=== PATIENT | female | born 1990 | race African-American/Black ===

== ENCOUNTER 2020-08-01 10:10 | Emergency (ER) | payer OTHER, SELFPAY ==
[2020-08-01 10:18] VITALS: BP 109/63; PULSE 76; RESP 18; TEMP 36.3; O2SAT 99
--- NOTE | 2020-08-01 10:22 | ED.HA ---
HPI - Headache General Chief Complaint: Headache Stated Complaint: spencer/neck pain Source: patient and RN notes reviewed Mode of arrival: ambulatory Limitations: no limitations History of Present Illness HPI Narrative: This patient is a 30-year-old -Wel[place] female that presented today in the urgent care complaining of left side neck pain along with headaches. Patient has a history of diabetes. According to patient about a week ago she was assembling a bicycle in the sprain muscle on her lower left side of her back. Patient noted that because of the sprain she had sleep in all positions. She believes that this is the cause of her neck pain. Patient noted that she did take Tylenol for muscle aches at home with no relief. She has not slept in approximately 4 days due to the discomfort of her neck and headaches. The patient denies SOB, CP, palpitation, extremity numbness, lightheadedness, dizziness, constipation, diarrhea, chills, or fever. Related Data Home Medications Medication Instructions Recorded Confirmed metformin 500 mg PO DAILY 08/01/20 08/01/20 Allergies Allergy/AdvReac Type Severity Reaction Status Date / Time No Known Allergies Allergy Verified 08/01/20 10:26 Review of Systems Review of Systems: All systems reviewed & are unremarkable except as noted in HPI and below (10 system review) Exam Narrative: Exam Narrative: GENERAL: This is a well-nourished, well-developed patient, in no apparent distress. HEAD: normocephalic, atraumatic. EYES: PERRL. Sclera clear/white. Vision is grossly intact. EARS: External ears normal, auditory canals clear and without drainage, TMs normal without perforation. Hearing grossly intact. NOSE: External nose normal with no obvious nasal discharge, nares without redness, no rhinorrhea. THROAT: Mucous membranes moist, posterior pharynx clear. NECK: Neck supple, non-tender without lymphadenopathy, masses or thyromegaly. CARDIOVASCULAR: Regular rate and rhythm without murmurs, gallops, or rubs. RESPIRATORY: Clear to auscultation. Breath sounds equal bilaterally. No wheezes, rales, or rhonchi. GASTROINTESTINAL: Abdomen soft, non-tender, nondistended. Bowel sounds are active. No hepato-splenomegaly, or palpable masses. No guarding. SKIN: warm, intact with no suspicious lesions or rash, good texture and turgor. NEURO: awake, alert, and oriented to person, place and time. There were no obvious focal neurologic abnormalities. Steady gait EXTREMITIES: Normal range of motion. No edema. No calf tenderness. Negative Homans sign bilaterally. BACK: Nontender without deformity or crepitance. No flank tenderness. Course Vital Signs Vital signs: Vital Signs Temperature 97.4 F L 08/01/20 10:18 Pulse Rate 76 08/01/20 10:18 Respiratory Rate 18 08/01/20 10:18 Blood Pressure 109/63 08/01/20 10:18 Pulse Oximetry 99 08/01/20 10:18 Temperature 97.4 F L 08/01/20 10:18 Pulse Rate 76 08/01/20 10:18 Respiratory Rate 18 08/01/20 10:18 Blood Pressure 109/63 08/01/20 10:18 Pulse Oximetry 99 08/01/20 10:18 MDM - Headache MDM Narrative Medical decision making narrative: Patient discharge with Flexeril and a short dose of pain medication and instructions to ice Differential Diagnosis Differential diagnosis: Likely other (Muscle strain) Medical Records Attestation: I reviewed the patient's medical records. Critical Care Time Critical Care Time Critical Care Time: No Discharge Plan Discharge Clinical Impression: Neck ache Patient Disposition: Home, Self-Care Condition: Stable Instructions: Antibiotic Form, Muscle Strain (DC) Additional Instructions: Ice to the area 20-30 minutes 4-6 times a day Elevate above heart Elastic wrap or orthopedic splint as directed for comfort for the next 5-7 days Crutches as directed if needed Tylenol for lesser pain Ibuprofen regularly for the next 2-3 days for the inflammation Use the medication as prov
== END 2020-08-01 10:54 | disposition home or self-care (01) ==
PROVIDERS: Emergency Provider Nurse Practitioner
DX: M54.2 Cervicalgia (principal)
CPT/HCPCS: 99203; G0463

== ENCOUNTER 2022-02-12 13:02 | Outpatient (CLI) | payer OTHER, SELFPAY ==
--- NOTE | ~2022-02-12 | US_ITS ---
EXAMINATION: US thyroid DATE: 02/12/2022 14:11 INDICATION: Nontoxic goiter. TECHNIQUE: Multiple ultrasound images of the thyroid were obtained. COMPARISON: None. FINDINGS: The right thyroid lobe measures 6.4 x 2.1 x 2.5 cm. The left thyroid lobe measures 6.4 x 2.2 x 2.7 c m. In the right thyroid lobe, there is a 5 mm solid, very hypoechoic, [id number] nodule with sm ooth margin without echogenic foci (TI-RADS TR4). In the right thyroid lobe, there is a 6 mm solid, h ypoechoic, [id number] nodule with irregular margin without echogenic foci (TR4). IMPRESSION: 1. Small thyroid nodules, likely not clinically significant. No follow-up is needed. Reviewed, dictated and finalized at location A. IMPRESSION: 1. Small thyroid nodules, likely not clinically significant. No follow-up is ne eded.
--- NOTE | ~2022-02-12 | US_ITS ---
EXAMINATION: US pelvic complete w TV EXAM DATE: 02/12/2022 14:17 INDICATION: R93.89 - Abnormal findings on diagnostic imaging of other... TECHNIQUE: Pelvic transabdominal and transvaginal sonogram was performed. There are multiple graysca le and Doppler images available for interpretation. There is no prior study for comparison. FINDINGS: Uterus measures 8.1 x 4.6 x 5.8 cm, with a small fibroid measuring 1.2 cm distorting the e ndometrium . Endometrial stripe measures 13 mm, within normal limits. There is no free pelvic fluid. Right adnexa: The ovary measures 4.0 x 1.8 x 2.6 cm, with complex thick-walled cystic lesion measurin g up to 2.4 cm. Ovarian vascular flow confirmed. Left adnexa: The ovary measures 3.8 x 1.5 x 1.5 cm and is morphologically normal. Ovarian vascular fl ow confirmed. IMPRESSION: 1. Small complex cystic right ovarian lesion could be hemorrhagic cyst; consider 6 week follow-up pe lvic sonogram. 2. Small fibroid. Reviewed, dictated and finalized at location B. IMPRESSION: 1. Small complex cystic right ovarian lesion could be hemorrhagic cyst; consid er 6 week follow-up pelvic sonogram. 2. Small fibroid.
== END 2022-02-12 13:03 | disposition home or self-care (01) ==
PROVIDERS: PCP Nurse Practitioner Family; Visit Provider Obstetrics & Gynecology
DX: R93.89 Abnormal findings on diagnostic imaging of other specified body structures (principal); N80.9 Endometriosis, unspecified; N83.8 Other noninflammatory disorders of ovary, fallopian tube and broad ligament; D25.9 Leiomyoma of uterus, unspecified; E04.2 Nontoxic multinodular goiter
CPT/HCPCS: 76536; 76830; 76856

== ENCOUNTER 2022-03-13 07:36 | Outpatient (CLI) | payer OTHER, SELFPAY ==
--- NOTE | ~2022-03-13 | US_ITS ---
EXAMINATION: US pelvic complete w TV DATE: 03/13/2022 10:29 INDICATION: Unspecified ovarian cyst, unspecified site TECHNIQUE: Multiple transabdominal and endovaginal sonographic images of the pelvis were obtained. COMPARISON: 02/12/2022 FINDINGS: The uterus measures 8.9 x 5.0 x 4.5 cm. The endometrial complex measures 15 mm. The right o vary measures 4.2 x 2.8 x 2.5 cm there is a 1.8 x 1.5 x 1.3 cm isoechoic, well-circumscribed hypervas cular lesion of the right ovary. The left ovary measures 4.1 x 2.6 x 1.6 cm. There is normal vascular flow in the ovaries. There is no free fluid in the pelvis. IMPRESSION: 1. Solid-appearing well-circumscribed mass of the right ovary. Further evaluation by MRI without and with contrast is recommended. Reviewed, dictated and finalized at location A. IMPRESSION: 1. Solid-appearing well-circumscribed mass of the right ovary. Further evaluati on by MRI without and with contrast is recommended.
== END 2022-03-13 07:37 | disposition home or self-care (01) ==
PROVIDERS: PCP Nurse Practitioner Family; Visit Provider Obstetrics & Gynecology
DX: N83.209 Unspecified ovarian cyst, unspecified side (principal)
CPT/HCPCS: 76830; 76856

== ENCOUNTER 2022-03-18 13:50 | Outpatient (CLI) | payer OTHER, SELFPAY ==
[2022-03-18 14:42] LABS: T4 Thyroxine 7.19 ug/dL (5.53-11.0)
[2022-03-18 14:56] LABS: Thyroid Stimulating Hormone 0.532 uIU/mL (0.465-4.680)
[2022-03-20 21:30] LABS: CA-125 11 U/mL (<35)
== END 2022-03-18 13:51 | disposition home or self-care (01) ==
LOC: ANHLAB 13:52
PROVIDERS: PCP Nurse Practitioner Family; Visit Provider Obstetrics & Gynecology
DX: E04.9 Nontoxic goiter, unspecified (principal); N83.209 Unspecified ovarian cyst, unspecified side
CPT/HCPCS: 36415; 84436; 84443; 86304

== ENCOUNTER 2022-04-08 09:33 | Outpatient (CLI) | payer OTHER, SELFPAY ==
--- NOTE | ~2022-04-08 | US_ITS ---
EXAMINATION: US pelvic complete w TV DATE: 04/08/2022 10:20 INDICATION: Follow-up right ovarian cyst Comparison:03/13/2020 TECHNIQUE: Multiple transabdominal and endovaginal sonographic images of the pelvis performed. FINDINGS: The uterus measures 9 x 5.2 x 4.3 cm. There is a uterine fibroid measuring 1.4 x 1.1 x 1.0 cm. The endometrial complex measures 1.5 cm. The right ovary measures 4.6 x 3.8 x 2.5 cm and the left ovary measures 3.7 x 3 x 1.7 cm. There are small follicles in each ovary. Normal doppler signal in both ovaries. There is trace free fluid in the pelvis. There are no abnormal masses seen on either side. IMPRESSION: 1. Endometrial thickening measuring 1.5 cm. 2: Uterine fibroid measuring 1.4 cm. 3: No evidence for ovarian or adnexal mass or cyst. Reviewed, dictated and finalized at location B.
== END 2022-04-08 09:34 | disposition home or self-care (01) ==
LOC: ANHIMG 09:42
PROVIDERS: PCP Nurse Practitioner Family; Visit Provider Obstetrics & Gynecology
DX: N83.201 Unspecified ovarian cyst, right side (principal); R93.89 Abnormal findings on diagnostic imaging of other specified body structures; D25.9 Leiomyoma of uterus, unspecified
CPT/HCPCS: 76830; 76856

== ENCOUNTER 2022-08-08 15:46 | Emergency (ER) | payer OTHER, SELFPAY ==
--- NOTE | 2022-08-08 15:59 | ED.FEMALEGU ---
HPI - Female Genitourinary General Chief complaint: Urogenital-Female Stated complaint: Possible UTI Time Seen by Provider: 08/08/22 16:15 Source: patient Mode of arrival: ambulatory Limitations: no limitations History of Present Illness HPI Narrative: Ms. Veliz is a 32-year-old female patient presenting to clinic today with complaints of possible urinary tract infection. She reports over the last few days she has had some urinary urgency, frequency, and low urine output. She also reports some irritation around her urethra and some vaginal itching. States that she just finished some Augmentin for a sinus infection on 03 August. She denies any fever or chills. She denies any low back pain or abdominal pain Related Data Home Medications Medication Instructions Recorded Confirmed metformin 500 mg tablet 500 mg PO DAILY 08/01/20 08/08/22 dulaglutide 0.75 mg/0.5 mL 0.75 mg subcut WEEKLY 02/04/22 08/08/22 subcutaneous pen injector (Trulicity) Allergies Allergy/AdvReac Type Severity Reaction Status Date / Time No Known Allergies Allergy Verified 08/08/22 16:17 Review of Systems Review of Systems: Pertinent positives per HPI. Patient denies any fever, chills, rash, headache, visual changes, dizziness, cough, runny nose, sore throat, shortness of breath, chest pain, palpitations, nausea, vomiting, diarrhea, constipation, abdominal pain, or any urinary issues. PMFSH Past Medical History Medical History Diabetes Surgical History Surgical History No significant past surgical history Family History Family History Other Cerebrovascular accident Diabetes mellitus Heart disease Hypertension Social History Social History Smoking status: Never smoker Alcohol intake: never Substance use: never Comments At the time of my signature, I reviewed and agree with the nursing past medical, surgical, social, and family history. There is no relevant family history pertinent to the patient complaint. Exam Narrative: General: Well-developed, well nourished, in no apparent distress. Head: Normocephalic, atraumatic. Cardio: Regular rate and rhythm, s1 and s2 normal, no murmur appreciated. Resp: Clear to auscultation bilaterally, no rhonchi, rales, wheezing or rubs. Abdomen: Soft, pliable, bowel sounds present in all quadrants, non-tender to palpation, no organomegly, no CVAT tenderness. Course Course Emergency Course: Portions of this record may have been created with voice recognition software. Level of Care: Express Care Visit Vital Signs Vital signs: Vital signs reviewed MDM - Female Genitourinary MDM Narrative Medical decision making narrative: At the time of visit patient is resting comfortably on the exam table. UA shows positive leukocyte, blood, and protein. I suspect the patient has acute cystitis. I will give her a prescription for some Diflucan and Bactrim as she is getting another antibiotic and has recently been off antibiotic and having some vaginal itching. Supportive measures were discussed with the patient she voiced understanding of discharge instructions and agrees to treatment plan. Differential Diagnosis Differential diagnosis: Likely urinary tract infection, cystitis and other (Vaginal yeast infection) Discharge Plan Discharge Clinical Impression: Urinary tract infection, Vaginal yeast infection Patient Disposition: Home, Self-Care Condition: Stable Instructions: Antibiotic Form, Urinary Tract Infection in Women (ED), Yeast Infection (ED) Additional Instructions: Take Bactrim and Diflucan as prescribed Increase fluids and stay well hydrated Wipe front to back. May use wet wipes. Avoid tub baths If sexually acti
[2022-08-08 16:01] VITALS: BP 120/69; PULSE 99; RESP 18; TEMP 36.1; O2SAT 99
== END 2022-08-08 16:30 | disposition home or self-care (01) ==
PROVIDERS: Emergency Provider Nurse Practitioner Family; PCP Nurse Practitioner Family
DX: N39.0 Urinary tract infection, site not specified (principal); B37.31 Acute candidiasis of vulva and vagina; E11.9 Type 2 diabetes mellitus without complications; Z79.84 Long term (current) use of oral hypoglycemic drugs
CPT/HCPCS: 81003; 87077; 87086; 87186; 99213; G0463

== ENCOUNTER 2023-03-02 09:02 | Outpatient (CLI) | payer OTHER, SELFPAY ==
--- NOTE | ~2023-03-02 | US_ITS ---
EXAMINATION: US pelvic complete w TV DATE: 03/02/2023 12:01 INDICATION: Unspecified ovarian cyst, right side. TECHNIQUE: Multiple transabdominal and transvaginal sonographic images of the pelvis were obtained. COMPARISON: Ultrasound 04/08/22 FINDINGS: TRANSABDOMINAL ULTRASOUND: The uterus measures 7.8 x 5.1 x 4.6 cm. There is no free fluid in the pelvis. TRANSVAGINAL ULTRASOUND: The endometrial complex measures 2 mm in thickness. There is a 1.5 cm intramural fibroid. The right o vary measures 4.3 x 2.1 x 2.2 cm. The left ovary measures 4.8 x 2.3 x 2.7 cm. There is normal vascula r flow in the ovaries. IMPRESSION: 1. Uterine fibroid. 2. Normal ovaries. Reviewed, dictated and finalized at location A.
== END 2023-03-02 09:03 | disposition home or self-care (01) ==
PROVIDERS: PCP Nurse Practitioner Family; Visit Provider Obstetrics & Gynecology
DX: D25.9 Leiomyoma of uterus, unspecified (principal); N83.201 Unspecified ovarian cyst, right side
CPT/HCPCS: 76830; 76856

== ENCOUNTER 2023-12-02 14:05 | Emergency (ER) | payer OTHER, SELFPAY ==
[2023-12-02 14:06] VITALS: BP 134/80; PULSE 85; RESP 18; TEMP 36.4; O2SAT 99
[2023-12-02 14:44] LABS: Appearance Urine Clear (Clear); Bacteria Urine None Seen /hpf; Bilirubin Urine Negative (Negative); Blood Urine 3+ (Negative); Color Urine Yellow (Yellow); Glucose Urine UA Negative (Negative); Ketones Urine Negative (Negative); Leukocyte Esterase Ur 2+ LEU/UL (Negative); Nitrate Urine Negative (Negative); Non Pathogenic Casts 0-2; Protein Urine Negative (Negative); RBC Urine 0-2 /hpf (0-2); Specific Grav Ur 1.013 (1.001-1.035); Squamous Epithelial Cell Urine Occasional /hpf (Few); Urobilinogen Urine 0.2 mg/dL (<2.0); pH Urine 6.5 (5.0-9.0)
[2023-12-02 14:47] LABS: Add Urine Microscopic? YES
--- NOTE | 2023-12-02 15:27 | ED.EXTPRO ---
HPI - Extremity Problem General Chief complaint: Extremity Problem,Nontraumatic Stated complaint: B leg pain Time Seen by Provider: 12/02/23 14:16 History of Present Illness HPI Narrative: 33-year-old female presenting to the emergency department for evaluation leg pain. Patient states she has been dealing with sciatica for the last 2 months. Patient has been following up with a chiropractor but states that this has not been helping. Patient has not had follow-up with primary care physician or physical therapy. Patient has not been taking any medications for this. Patient states she has been taking intermittent Tylenol and ibuprofen but nothing scheduled. Patient denies any persistent numbness or weakness down the legs. Patient states she did have some increased urinary urgency but denies any difficulty starting urination and denies any loss of bowel control. Patient has been afebrile. Related Data Home Medications Medication Instructions Recorded Confirmed metformin 500 mg tablet 500 mg PO DAILY 08/01/20 08/31/23 dulaglutide 0.75 mg/0.5 mL 0.75 mg subcut WEEKLY 02/04/22 08/31/23 [facility] tranexamic acid 650 mg tablet 650 mg PO TID PRN 08/20/23 08/31/23 Allergies Allergy/AdvReac Type Severity Reaction Status Date / Time No Known Allergies Allergy Verified 12/02/23 14:31 Review of Systems Review of Systems: All systems reviewed & are unremarkable except as noted in HPI and below PMFSH Past Medical History Medical History Diabetes Surgical History Surgical History No significant past surgical history Family History Family History Other Cerebrovascular accident Diabetes mellitus Heart disease Hypertension Social History Social History Smoking status: Never smoker Alcohol intake: never Substance use: never Lack of Transportation: No Lack of Food: Never True Current Housing: I Have Housing Concerned About Future Housing: No Difficulty Paying Gas/Electric Bills: No Difficulty Paying for Meds: No Currently Unemployed: No Difficulty w/ Childcare or Family Care: No Occupation/Education: occupation Gender identity (if verbalized by the patient): Female Exam Narrative: APPEARANCE: Well appearing, no pain, no distress, well-nourished. HEAD: normocephalic, atraumatic. EYES: PERRLA/EOMI, conjunctivae clear. NOSE: Normal no drainage NECK: Supple. No adenopathy, no masses. RESPIRATORY: Airway patent, respirations nonlabored. Clear to auscultation bilaterally, no rales, rhonchi, wheezing. CARDIOVASCULAR: Regular rate and rhythm without murmurs rubs or gallops. ABDOMINAL: Soft, nontender, nondistended, normal bowel sounds MUSCULOSKELETAL: Normal strength and reflexes NEURO: Alert. Cranial nerves II through XII intact. Grossly intact SKIN: Warm, dry. Normal Color Course Course Emergency Course: 33-year-old female present in the emergency department for evaluation low back pain that radiates down her leg. Patient did have some blood on her UA but patient states she is currently on her menstrual cycle. Urine culture was ordered. on bladder scan patient had no residual urine. Patient was updated with results of the exam and workup. Patient was agreeable to be started on a Medrol Dosepak and provided Flexeril for muscle spasm. Patient was encouraged to have close follow-up with her primary care physician that patient was informed that she may need to have some physical therapy. All questions concerns were addressed patient was comfortable with plan discharge and close follow-up. Patient is also educated on reasons to return to the emergency department including debility urinary loss of bowel control or persistent numbness and w
[2023-12-02 15:52] VITALS: BP 130/80; PULSE 80; RESP 18; TEMP 36.6; O2SAT 99
[2023-12-02 15:53] LABS: Glucose Point of Care 82 mg/dl (65-105)
== END 2023-12-02 15:54 | disposition home or self-care (01) ==
PROVIDERS: Emergency Provider Emergency Medicine; PCP Nurse Practitioner Family
DX: M54.42 Lumbago with sciatica, left side (principal); M54.41 Lumbago with sciatica, right side; E11.9 Type 2 diabetes mellitus without complications; Z79.84 Long term (current) use of oral hypoglycemic drugs
CPT/HCPCS: 81001; 82948; 87086; 99283